=== PATIENT | female | born 1960 ===

== ENCOUNTER 2017-12-18 05:51 | Day surgery (SDC) | payer OTHER ==
[~2017-12-18 05:51] MED LIST: SYNTHROID112 MCG PO
[2017-12-18] MEDS ORDERED: PERCOCET 5-3251 EACH PO (11:10)
== END 2017-12-18 17:30 | disposition home or self-care (01) ==
LOC: CIR.AMB 05:51
DX: N87.1 Moderate cervical dysplasia (principal); N71.1 Chronic inflammatory disease of uterus

== ENCOUNTER 2017-12-29 22:58 | Day surgery (SDC) | payer OTHER ==
[~2017-12-29] VITALS: Ht 167.6 cm; Wt 66.7 kg
[~2017-12-29 22:58] MED LIST changes: +PERCOCET 5-3251 EACH PO
== END 2017-12-31 06:00 | disposition home or self-care (01) ==
LOC: ER 22:58 → CIR.AMB 12-30 06:00 → O/R 12-30 07:09 → ER 12-30 07:09 → SEC-K 12-30 07:09 → EDSTATUS 12-30 08:00 → O/R 12-30 08:16 → SEC-K 12-30 08:16 → CIR.AMB 12-30 09:00 → OB/GYN 12-30 10:57 → O/R 12-30 10:57 → CIR.AMB 12-31 06:00 → O/R 12-31 10:04 → OB/GYN 12-31 10:04 → SEC-K 12-31 10:04
DX: N99.820 Postprocedural hemorrhage of a genitourinary system organ or structure following a genitourinary system procedure (principal)